=== PATIENT | female | born 1940 | race Caucasian/White ===

== ENCOUNTER 2018-12-19 14:47 | Inpatient (IN) | payer MEDICARE ==
[~2018-12-19] VITALS: Ht 152.4 cm; Wt 78.7 kg
--- NOTE | 2018-12-19 16:04 | Diagnostic Imaging Report ---
EXAMINATION: CHEST SINGLE (PORTABLE) INDICATION: Chest pain. COMPARISON: None FINDINGS: TUBES and LINES: None. LUNGS: Lungs are well inflated. Lungs are clear. There is no evidence of pneumonia or pulmonary edema. PLEURA: No pleural effusion or pneumothorax. HEART AND MEDIASTINUM: The cardiomediastinal silhouette is unremarkable. BONES AND SOFT TISSUES: No acute osseous abnormality. Old healed fracture deformity of the right clavicle. UPPER ABDOMEN: No free air under the diaphragm. IMPRESSION: No acute radiographic abnormality. Signed by: Dr. Luz Elena Lozada MD on 12/19/2018 4:00 PM
[2018-12-19 16:25] LABS: BILIRUBIN,URINE NEGATIVE (NEGATIVE); KETONES,URINE NEGATIVE (NEGATIVE); LEUKOCYTE ESTERASE ,URINE NEGATIVE (NEGATIVE); NITRITE,URINE NEGATIVE (NEGATIVE); PROTEIN,URINE DIPSTICK 2+ (NEGATIVE); URINE UROBILINOGEN 0.2 mg/dL (0.2 - 1)
[2018-12-19 16:33] LABS: AMORPHOUS SEDIMENT,URINE FEW (FEW); BACTERIA,URINE FEW /HPF; CLARITY,URINE CLEAR (CLEAR); COLOR,URINE YELLOW (YELLOW); EPITHELIAL CELLS,URINE FEW /LPF; MUCUS,URINE FEW (RARE); RBC,URINE 0-5 /HPF (0-5); WBC,URINE (MAN) 0-5 /HPF (0-5)
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
[2018-12-19 17:17] LABS: BASOPHILS # (AUTO) 0.1 (0.0-0.1); BASOPHILS % 0.7 % (0.0-1.0); EOSINOPHILS # (AUTO) 0.2 (0.0-0.4); EOSINOPHILS % 1.9 % (0.0-6.0); HEMATOCRIT 33.3 % (34.2-44.1); HEMOGLOBIN 10.1 g/dL (12.0-16.0); LYMPHOCYTES # (AUTO) 1.3 (1.0-3.2); LYMPHOCYTES % 14.9 % (18.0-39.1); MEAN CORPUSCULAR HEMOGLOBIN 24.4 pg (28-32); MEAN CORPUSCULAR HGB CONC 30.3 g/dL (31-35); MEAN CORPUSCULAR VOLUME 80.4 fL (81-99); MONOCYTES # (AUTO) 0.5 (0.2-0.8); MONOCYTES % 5.4 % (4.4-11.3); NEUTROPHILS # (AUTO) 6.6 (2.1-6.9); NEUTROPHILS % 76.9 % (38.7-80.0); PLATELET COUNT 305 x10e3/uL (140-360); RED BLOOD COUNT 4.14 x10e6/uL (3.6-5.1); RED CELL DISTRIBUTION WIDTH 15.7 % (11.7-14.4)
[2018-12-19 17:39] LABS: INR 0.89; PARTIAL THROMBOPLASTIN TIME 34.4 seconds (23.8-35.5); PROTHROMBIN TIME 12.9 seconds (11.9-14.5)
[2018-12-19 17:45] LABS: ALANINE AMINOTRANSFERASE 11 IU/L (0-55); ALBUMIN 3.4 g/dL (3.5-5.0); ALBUMIN/GLOBULIN RATIO 0.9 (0.8-2.0); ALKALINE PHOSPHATASE 63 IU/L (40-150); ANION GAP 17.1 mmol/L (8-16); BLOOD UREA NITROGEN 26 mg/dL (7-26); BUN/CREATININE RATIO 18 (6-25); CALCIUM 9.6 mg/dL (8.4-10.2); CARBON DIOXIDE 20 mmol/L (22-29); CHLORIDE 106 mmol/L (98-107); CREATINE KINASE 62 IU/L (29-168); CREATININE, SERUM 1.42 mg/dL (0.57-1.11); EST GLOMERULAR FILTRATION RATE 36 ML/MIN (60-); GLUCOSE 152 mg/dL (74-118); POTASSIUM 5.1 mmol/L (3.5-5.1); SODIUM 138 mmol/L (136-145)
[2018-12-19 17:57] LABS: MAGNESIUM 2.3 MG/DL (1.3-2.1)
[2018-12-19 18:24] LABS: THYROID STIMULATING HORMONE 0.707 uIU/mL (0.350-4.940)
[2018-12-19] MEDS ORDERED: CEFTRIAXONE SOD 1 GM/NS 50 ML 50 ML IV SCH (19:45)
[2018-12-19] MEDS ORDERED: ONDANSETRON HCL INJ 2MG/ML 2ML 2 MG/ML VIAL IV PRN (20:00)
[2018-12-19] MEDS ORDERED: SODIUM CHLORIDE 0.9% 1000ML 1,000 ML IV ONE (20:00)
[2018-12-19] MEDS ORDERED: METHYLPREDNISOLONE SOD SUCC 125 MG/2ML VIAL IV ONE (20:00)
--- OUTSIDE RECORDS SUMMARY | 2018-12-19 20:29 | XMS REPORT ---
Author Author [facility] Address Unknown Phone Unavailable Care Team Providers Care Manager Of Health Name Role Phone Navid KESSLER Unavailable Unavailable Problems This patient has no known problems. Allergies, Adverse Reactions, Alerts This patient has no known allergies or adverse reactions. Medications This patient has no known medications. Results Test Description Test Time Test Comments Text Results Atomic Results Result Comments CT BRAIN WO 2018-12-19 16:56:00 [place] [address] Patient Name: MONIK MTZ MR #: [id number] : 1940 Age/Sex: 78/F Req #: [id number] Adm Physician: Ordered by: CURTIS KESSLER MD Report #: [id number] Location: ER Room/Bed: Procedure: [id number] CT/CT BRAIN WO Exam Date: Exam Time: REPORT STATUS: Signed Examination: CT head without contrast Clinical Indication: Weakness. Techn ique: Transaxial noncontrast images from the skull base through the vertex were obtained. Sagittal and coronal reformatted images were done. Dose modulation, iterative reconstruction, and/or weight based adjustment of the mA/kV was utilized to reduce the radiation dose to as low as reasonably achievable. Comparison: None. Findings: Scalp: No abnormalities. Bones: Intact. There is a thinned defect of the right frontal calvarium from prior trauma. No fractures. No blastic or lytic lesions. Brain sulci: Appropriate for patient's age. Ventricles: Normal in size and configuration. No hydrocephalus. . Extra-axial space: No abnormalities. Parenchyma: There are areas of encephalomalacia involving the left internal watershed/ borderzone and cortical right posterior cerebral artery territory. Chronic lacunar infarct in the anterior limb of the left internal capsule. There are subtle patchy areas of low-attenuation within subcortical and perive ntricular white matter, nonspecific, but could represent microvascular ischemic disease. No masses, hemorrhage, or acute cortical based vascular insults. Suprasellar region: No abnormalities. Craniocervical junction: The foramen magnum is patent. No Chiari one malformation. Incidental findings: Partial opacification of the left sphenoid sinus. Impression: 1. No acute intracranial finding. 2. Mild chronic microvascular ischemic change. 3. Chronic infarcts, as above. Signed by: Dr. Myranda Bucio M.D. on 12/19/2018 5:02 PM Dictated By: MYRANDA GARCIA MD 01 Transcribed By: KARIN on 12/19/181701 COPY TO: CURTIS KESSLER MD CHEST SINGLE (PORTABLE) 2018-12-19 15:59:00 [place] [address] Patient Name: MONIK MTZ MR #: [id number] : 1940 Age/Sex: 78/F Req #: [id number] Adm Physician: Ordered by: CURTIS KESSLER MD Report #: [id number] Location: ER Room/Bed: Procedure: [id number] DX/CHEST SINGLE (PORTABLE) Exam Date: 12/19/18 Exam Time: 1550 REPORT STATUS: Signed EXAMINATION: CHEST SINGLE (PORTABLE) INDICAT ION: Chest pain. COMPARISON: None FINDINGS: TUBES and LINES: None. LUNGS: Lungs are well inflated. Lungs are clear. There is no evidence of pneumonia or pulmonary edema. PLEURA: No pleural effusion or pneumothorax. HEART AND MEDIASTINUM: The cardiomediastinal silhouette is unremarkable. BONES AND SOFT TISSUES: No acute osseous abnormality. Old healed fracture deformity of the right clavicle. UPPER ABDOMEN: No free air under the diaphragm. IMPRESSION: No acute radiographic abnormality. Signed by: Dr. Chi Vallejo MD on 12/19/2018 4:00 PM Dictated By: CHI VALLEJO MD 1600 Transcribed By: KARIN on 12/19/18 1600 COPY TO: CURTIS KESSLER MD
[2018-12-19] MEDS: AZITHROMYCIN 500MG/NS 250 ML 250 ML IV SCH ×2 (20:44→20:46)
[2018-12-19 21:00] VITALS: BP 150/64
[2018-12-19 21:30] VITALS: BP 150/64
[2018-12-19] MEDS ORDERED: COLACE100 MG PO (21:53)
[2018-12-19] MEDS ORDERED: LOSARTAN POTAS100 MG PO (21:53)
[2018-12-19] MEDS ORDERED: ZOLOFT50 MG PO (21:53)
[2018-12-19] MEDS ORDERED: ZETIA10 MG PO (21:53)
[2018-12-19] MEDS ORDERED: FLAX SEED OIL1000 MG PO (21:53)
[2018-12-19] MEDS ORDERED: NORVASC5 MG PO (21:53)
[2018-12-19] MEDS ORDERED: ALBUTEROL0.63 MG/3 INH (21:53)
[2018-12-19] MEDS ORDERED: MECLIZINE HCL12.5 MG PO (21:53)
[2018-12-19] MEDS ORDERED: PANTOPRAZOLE SO40 MG PO (21:53)
[2018-12-19] MEDS ORDERED: NITROGLYCERIN1 EAC1 TD (21:53)
[2018-12-19] MEDS ORDERED: LORAZEPAM0.5 MG PO (21:53)
[2018-12-19] MEDS ORDERED: BACLOFEN10 MG PO (21:53)
[2018-12-19] MEDS ORDERED: ASPIR 8181 MG PO (21:53)
[2018-12-19] MEDS ORDERED: GLIPIZIDE5 MG PO (21:53)
[2018-12-19] MEDS ORDERED: MIRALAX17 GM PO (21:53)
[2018-12-19] MEDS: LORAZEPAM 0.5 MG TAB PO SCH (22:25)
[2018-12-19] MEDS: ALBUTEROL SULF 0.083% NEB SOLN 3 ML NEB NEB SCH (22:40)
[2018-12-19] MEDS: IPRATROPIUM BROMIDE 0.02% 2.5 ML NEB NEB SCH (22:40)
[2018-12-20] VITALS (7 sets, daily range): BP systolic 132–170; BP diastolic 58–74
[2018-12-20 00:14] LABS: CREATINE KINASE 52 IU/L (29-168)
[2018-12-20] MEDS: ALBUTEROL SULF 0.083% NEB SOLN 3 ML NEB NEB SCH ×3 (02:08→15:05)
[2018-12-20] MEDS: IPRATROPIUM BROMIDE 0.02% 2.5 ML NEB NEB SCH ×3 (02:08→15:05)
[2018-12-20] MEDS ORDERED: EPINEPHRINE HCL 1:1000 1ML 1 MG/ML AMP ONE (05:58)
[2018-12-20] MEDS ORDERED: ALTEPLASE 50 MG/VIAL (29 MILLION IU) IV ONE (05:58)
[2018-12-20 06:38] LABS: BASOPHILS % 0.2 % (0.0-1.0); HEMOGLOBIN 9.2 g/dL (12.0-16.0); LYMPHOCYTES # (AUTO) 0.6 (1.0-3.2); MEAN CORPUSCULAR HEMOGLOBIN 24.7 pg (28-32); MEAN CORPUSCULAR HGB CONC 30.7 g/dL (31-35); MEAN CORPUSCULAR VOLUME 80.4 fL (81-99); MONOCYTES % 0.8 % (4.4-11.3); NEUTROPHILS # (AUTO) 4.2 (2.1-6.9); NEUTROPHILS % 86.4 % (38.7-80.0); PLATELET COUNT 249 x10e3/uL (140-360); RED BLOOD COUNT 3.73 x10e6/uL (3.6-5.1); RED CELL DISTRIBUTION WIDTH 15.3 % (11.7-14.4)
[2018-12-20 07:06] LABS: ALBUMIN 2.8 g/dL (3.5-5.0); ALBUMIN/GLOBULIN RATIO 0.9 (0.8-2.0); ANION GAP 12.3 mmol/L (8-16); CALCIUM 8.7 mg/dL (8.4-10.2); CREATININE, SERUM 1.19 mg/dL (0.57-1.11); POTASSIUM 4.3 mmol/L (3.5-5.1)
[2018-12-20 07:31] LABS: CREATINE KINASE MB 1.4 ng/mL (0-5.0)
[2018-12-20] MEDS ORDERED: METHYLPREDNISOLONE SOD SUCC 125 MG/2ML VIAL IV SCH ×3 (08:00→21:00)
[2018-12-20] MEDS ORDERED: ALBUTEROL/IPRATROPIUM 3 ML NEB NEB PRN (08:15)
[2018-12-20] MEDS ORDERED: DOCUSATE SODIUM 100 MG CAP PO PRN (08:15)
--- NOTE | 2018-12-20 08:58 | History and Physical ---
CHIEF COMPLAINT: Cough and congestion for the last few days and since yesterday. Could not get out of bed and walk. HISTORY OF PRESENT MEDICAL ILLNESS: A 78-year-old pleasant white female with a past medical history of multiple medical problems [facility] with the above complaints. As per patient, she has generalized weakness and trouble walking for the last few months and progressively getting worse. Since the last few days, she started having cough, congestion and trouble breathing on walking. Hence, the patient came to the ER last night. In the emergency room, the patient was seen by the emergency room doctor and admitted for further care and treatment. At present, the patient is lying comfortably in bed in no apparent distress. No chest pain. No shortness of breath. No nausea, vomiting or diarrhea. No abdominal pain or loss of consciousness. No palpitations. No headaches. No hematemesis. No melena. No hematuria or dysuria. No fever. No cough. No witnessed seizures. PAST MEDICAL HISTORY 1. Diabetes mellitus. 2. Hypertension. 3. COPD. 4. Hyperlipidemia. 5. CHF. 6. CVA with right hemiparesis. 7. DJD. MEDS: As listed in chart. ALLERGIES: NO KNOWN DRUG ALLERGIES. SURGICAL HISTORY: Ex-smoker. No alcohol. No illicit drug use. Lives alone at home. REVIEW OF SYSTEMS: As per HPI. FAMILY HISTORY: Noncontributory. PHYSICAL EXAMINATION GENERAL: Patient is alert, awake and oriented times 3. No apparent distress. Lying in bed. VITALS: Temperature is 97, pulse is 60 per minute, respiratory rate , blood pressure is 135/66, and saturation 96%. SKIN: No cyanosis. No icterus. No pallor. HEENT: Normocephalic and atraumatic. PERRLA. NECK: Soft and supple. No JVD. No carotid bruits. LUNGS: Air entry bilaterally equal. No rales or rhonchi. HEART: S1 and S2. No gallops or rub. ABDOMEN: Soft and nontender. Bowel sounds plus. TOLL GATE KEEPER: Alert, awake and times 3. Right hemiparesis plus. LABS: Sodium 135, potassium 4.8, chloride 108, bicarb 19, BUN 21, creatinine 1.19, and glucose 248. LFTs noted. Cardiac enzymes times 2 negative. BNP 13.5. White count 4.9, hemoglobin 9.2, hematocrit 39, and platelets 249,000. Rapid flu and rapid strep negative. CT of brain with no acute intracranial finding. Mild chronic microvascular ischemic changes, chronic infarcts. Chest x-ray with no acute changes. EKG shows sinus bradycardia. No acute ST-T changes. ASSESSMENT 1. Acute bronchitis with chronic obstructive pulmonary disease exacerbation. 2. Generalized weakness. 3. History of diabetes mellitus. 4. Chronic obstructive pulmonary disease. 5. Cerebrovascular accident. 6. Hypertension. 7. Congestive heart failure. PLAN: Admit the patient med/tele. Rocephin 1 g IVPB daily. Zithromax 500 mg IVPB daily. Solu-Medrol 40 mg IV q.12 h. Pulmonary consultation with Dr. Iyer. Neurology consultation with Dr. Ana Valencia. PT and OT eval and treat. Glucose Accu-Cheks q.a.c. and at night. Continue home medications. Further care and treatment of the patient while in the hospital. Discussed with the patient in detail. Job#: [id number] JESUS
[2018-12-20] MEDS: AMLODIPINE BESYLATE 5 MG TAB PO SCH (09:39)
[2018-12-20] MEDS: BACLOFEN 10 MG TAB PO SCH ×3 (09:39→21:55)
[2018-12-20] MEDS: LORAZEPAM 0.5 MG TAB PO SCH ×2 (09:39→21:55)
[2018-12-20] MEDS: ASPIRIN 81 MG CHEW TAB PO SCH (09:39)
[2018-12-20] MEDS: LOSARTAN POTASSIUM 100 MG TAB PO SCH (09:39)
[2018-12-20] MEDS: SERTRALINE HCL 50 MG TAB PO SCH (09:40)
[2018-12-20] MEDS: PANTOPRAZOLE SOD 40 MG TABEC PO SCH (09:40)
[2018-12-20] MEDS ORDERED: DEXTROSE 50% SYRINGE 50 ML IV PRN (10:30)
[2018-12-20] MEDS: INSULIN LISPRO 100 UNIT/1 ML 3ML VIAL SQ SCH ×2 (12:44→16:50)
[2018-12-20 14:23] LABS: CREATINE KINASE MB 2.5 ng/mL (0-5.0)
--- NOTE | 2018-12-20 16:22 | Consultation ---
DATE OF CONSULTATION: PULMONARY CONSULTATION REASON FOR CONSULTATION: Bronchitis and shortness of breath. HPI: Ms. Harvey is a 78-year-old female. She was recently admitted to [facility] and now here with the complaints of weakness. She recently finished rehab at [facility], and was at home, felt dizzy and generalized weakness. Was unable to walk. Also, had cough and upper respiratory tract infection. She is an ex-smoker. She quit smoking 15 years ago. Smoked for 40+ years. She denies any chest pain. Was feeling nauseous. In the emergency room, the patient's BUN was 21 and creatinine was 1.42, which has come down to 1.19 with IV hydration. She feels a little better, but still has some cough. She denies any complaints of cough. REVIEW OF SYSTEMS GENERAL: Denies any fever or chills. HEENT: Denies any head injury. Denies any earache. CV: Denies any chest pain. RESPIRATORY: Denies any shortness of breath. GI: Denies any nausea or vomiting. The rest of the review of systems are negative, except as in HPI. PAST MEDICAL HISTORY: Hypertension, diabetes, reported COPD. She was supposed to follow up with me 6 months ago. However, she was unable to. Degenerative joint disease. ALLERGIES: NO KNOWN DRUG ALLERGIES. 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 FAMILY AND SOCIAL HISTORY: Ex-smoker. Smoked for 40+ years. Quit 15 years ago. Used to smoke a pack a day. FAMILY HISTORY: Noncontributory. PHYSICAL EXAMINATION VITALS: Temperature 97.3, pulse of 63, blood pressure 149/66, respiratory rate 18, O2 sat 95% on room air. HEENT: Head atraumatic and normocephalic. NECK: Supple. CHEST: Clear to auscultation bilaterally. No wheezing. No crackles. HEART: S1 and S2 audible. ABDOMEN: Soft and nontender. EXTREMITIES: No clubbing, cyanosis or edema. NEUROLOGY: She is awake, alert and no focal neurological deficits. LABS: Sodium 135, potassium 4.3, chloride 108, bicarb 19, BUN 21, creatinine 1.19. When she came in, her bicarb was 20 and her creatinine was 1.42. Lactic acid was done, which was within normal limits. Chest x-ray, I have reviewed the images. It is not showing any evidence of any infiltrate. Brain CT was done, which is negative as well. Shows chronic infarcts and microvascular changes. Venous Doppler is pending. ASSESSMENT AND PLAN: Ms. Harvey is a 78-year-old female who came in with generalized weakness, unable to walk. Was found to be in acute kidney injury likely due to dehydration as she responded very well to fluid. History of chronic obstructive pulmonary disease, ex-smoker, occasional wheezing and bronchitis. CURRENT PROBLEMS 1. Acute bronchitis, possibly chronic obstructive pulmonary disease exacerbation. However, wheezing has resolved now. Probably was wheezing in the emergency room. I will reduce the dose of steroids. Continue the patient on nebulizer treatment. 2. Chest x-ray is not showing any evidence of pneumonia: Oxygen as needed to keep the O2 sat more than or equal to 92%. 3. Acute kidney injury, resolving with intravenous hydration. Thank you for this consult. Job#: [id number] JESUS
[2018-12-20] MEDS: ENOXAPARIN SOD INJ 40 MG/0.4 ML SYR SC SCH (16:50)
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
[2018-12-20] MEDS ORDERED: CEFTRIAXONE SOD 1 GM VIAL IV SCH (20:00)
[2018-12-20] MEDS: ALBUTEROL/IPRATROPIUM 3 ML NEB NEB SCH (20:18)
[2018-12-20] MEDS ORDERED: METHYLPREDNISOLONE SOD SUCC 40 MG/ML VIAL 1ML IV SCH (21:00)
[2018-12-20] MEDS: AZITHROMYCIN 500MG/NS 250 ML 250 ML IV SCH (21:55)
[2018-12-20] MEDS: CEFTRIAXONE SOD 1 GM/NS 50 ML 50 ML IV SCH (22:42)
[2018-12-21] VITALS (7 sets, daily range): BP systolic 123–149; BP diastolic 59–69
[2018-12-21] MEDS: INSULIN LISPRO 100 UNIT/1 ML 3ML VIAL SQ SCH ×5 (00:04→21:00)
[2018-12-21] MEDS: ALBUTEROL/IPRATROPIUM 3 ML NEB NEB SCH ×2 (07:00→21:00)
[2018-12-21] MEDS: LORAZEPAM 0.5 MG TAB PO SCH ×2 (08:22→21:21)
[2018-12-21] MEDS: BACLOFEN 10 MG TAB PO SCH ×3 (08:22→21:21)
[2018-12-21] MEDS: LOSARTAN POTASSIUM 100 MG TAB PO SCH (08:22)
[2018-12-21] MEDS: AMLODIPINE BESYLATE 5 MG TAB PO SCH (08:22)
[2018-12-21] MEDS: PANTOPRAZOLE SOD 40 MG TABEC PO SCH (08:22)
[2018-12-21] MEDS: ASPIRIN 81 MG CHEW TAB PO SCH (08:22)
[2018-12-21] MEDS: SERTRALINE HCL 50 MG TAB PO SCH (08:22)
[2018-12-21] MEDS: GLIPIZIDE 2.5 MG TABCR PO SCH ×2 (09:08→17:00)
[2018-12-21] MEDS: ENOXAPARIN SOD INJ 40 MG/0.4 ML SYR SC SCH (17:40)
[2018-12-21] MEDS: CEFTRIAXONE SOD 1 GM/NS 50 ML 50 ML IV SCH (21:21)
[2018-12-21] MEDS: AZITHROMYCIN 500MG/NS 250 ML 250 ML IV SCH (21:55)
[2018-12-22] VITALS (8 sets, daily range): BP systolic 142–197; BP diastolic 52–76
[2018-12-22 06:05] LABS: BASOPHILS # (AUTO) 0.1 (0.0-0.1); BASOPHILS % 0.9 % (0.0-1.0); EOSINOPHILS # (AUTO) 0.1 (0.0-0.4); EOSINOPHILS % 0.7 % (0.0-6.0); HEMATOCRIT 31.4 % (34.2-44.1); HEMOGLOBIN 9.4 g/dL (12.0-16.0); LYMPHOCYTES % 35.9 % (18.0-39.1); MEAN CORPUSCULAR HEMOGLOBIN 24.5 pg (28-32); MEAN CORPUSCULAR HGB CONC 29.9 g/dL (31-35); MEAN CORPUSCULAR VOLUME 81.8 fL (81-99); MONOCYTES # (AUTO) 0.5 (0.2-0.8); MONOCYTES % 6.3 % (4.4-11.3); NEUTROPHILS # (AUTO) 4.6 (2.1-6.9); NEUTROPHILS % 55.7 % (38.7-80.0); PLATELET COUNT 265 x10e3/uL (140-360); RED BLOOD COUNT 3.84 x10e6/uL (3.6-5.1); RED CELL DISTRIBUTION WIDTH 15.8 % (11.7-14.4)
[2018-12-22 06:40] LABS: ALBUMIN 2.9 g/dL (3.5-5.0); ALBUMIN/GLOBULIN RATIO 0.9 (0.8-2.0); ANION GAP 11.2 mmol/L (8-16); CALCIUM 8.9 mg/dL (8.4-10.2); CREATININE, SERUM 1.31 mg/dL (0.57-1.11); POTASSIUM 4.2 mmol/L (3.5-5.1)
[2018-12-22] MEDS: INSULIN LISPRO 100 UNIT/1 ML 3ML VIAL SQ SCH ×4 (07:30→21:27)
[2018-12-22] MEDS: ALBUTEROL/IPRATROPIUM 3 ML NEB NEB SCH ×2 (09:00→20:18)
[2018-12-22] MEDS: SERTRALINE HCL 50 MG TAB PO SCH (09:15)
[2018-12-22] MEDS: AMLODIPINE BESYLATE 5 MG TAB PO SCH ×2 (09:15→21:27)
[2018-12-22] MEDS: BACLOFEN 10 MG TAB PO SCH ×3 (09:15→21:27)
[2018-12-22] MEDS: LOSARTAN POTASSIUM 100 MG TAB PO SCH (09:15)
[2018-12-22] MEDS: LORAZEPAM 0.5 MG TAB PO SCH ×2 (09:15→21:27)
[2018-12-22] MEDS: GLIPIZIDE 2.5 MG TABCR PO SCH ×2 (09:15→17:54)
[2018-12-22] MEDS: PANTOPRAZOLE SOD 40 MG TABEC PO SCH (09:15)
[2018-12-22] MEDS: ASPIRIN 81 MG CHEW TAB PO SCH (09:15)
[2018-12-22] MEDS ORDERED: AMLODIPINE BESYLATE 5 MG TAB PO SCH (17:00)
[2018-12-22] MEDS: ENOXAPARIN SOD INJ 40 MG/0.4 ML SYR SC SCH (17:55)
[2018-12-22] MEDS: HYDRALAZINE HCL 25 MG TAB PO SCH (17:57)
[2018-12-22] MEDS: AZITHROMYCIN 500MG/NS 250 ML 250 ML IV SCH (21:27)
[2018-12-22] MEDS: CEFTRIAXONE SOD 1 GM/NS 50 ML 50 ML IV SCH (22:32)
[2018-12-23] VITALS (7 sets, daily range): BP systolic 129–147; BP diastolic 53–83
--- NOTE | 2018-12-23 01:52 | Consultation ---
DATE OF CONSULTATION: 12/22/2018 Cardiology consultation. Thank you so much for asking us to see this nice lady again in consultation. Ms. Harvey is a very complex and elderly 78-year-old woman known to us for many years, who was admitted on the with the complaints of cough and shortness of breath. HISTORY OF PRESENT ILLNESS: The patient is a very detailed and elaborate historian, who tells me that she was admitted to the hospital in April of last year for some problems with weakness and labile blood pressure. She reports that her blood pressure would drop and her heart would race when she attempted to exert herself. PAST MEDICAL HISTORY: Significant for previous diagnosis of cardiomyopathy without any demonstration of coronary artery disease, her ejection fraction was actually 20% to 30% in 2015, but by July 2017, it had returned to normal. She has had previous cardiac catheterization not demonstrating any coronary artery disease. She reports that she had a stroke many years ago and has used a leg brace to walk, however, she continues to live at home by herself since she was discharged from [facility] in July of 2018. CURRENT MEDICATIONS: Include azithromycin, ceftriaxone, albuterol, amlodipine 5 mg b.i.d., aspirin 81 mg daily, baclofen 10 mg t.i.d., Colace, Lovenox, glipizide 2.5 mg b.i.d., Humalog sliding scale, ativan, losartan 100 mg each morning, sertraline, Zoloft 50 mg daily. FAMILY HISTORY: Father at 72 of [place]. Mother at 75 with colon cancer. PHYSICAL EXAMINATION: GENERAL: At this time shows a pleasant elderly woman, who is alert, responsive, and conversant. VITAL SIGNS: Last blood pressure about 190/90. HEAD, EYES, EARS, NOSE, AND THROAT: Otherwise unremarkable. NECK: No jugular venous distention. No bruits. THORAX: heart sounds S1 and S2 are equal. No murmurs. LUNGS: Clear. ABDOMEN: Protuberant. EXTREMITIES: No cyanosis, clubbing, or edema. There is a leg brace on the bedside table. RADIOGRAPHS: EKG shows sinus bradycardia, rate of 51. Otherwise unremarkable. LABORATORY DATA: Recent laboratory studies show BUN 34, creatinine 1.3. Hemoglobin 9.4, white count 8.2. ASSESSMENT: 1. Hypertension, labile. 2. Palpitations. 3. History of cardiomyopathy, previously resolved. 4. Type 2 adult onset diabetes. 5. Anxiety disorder. PLAN: We will add 25 mg hydralazine b.i.d. and review echocardiogram. Further management will be based on clinical course. Thank you for asking us to see her in consultation. MD PILAR Evans/MODL /[id number] cc: MD Ana Tobar MD
[2018-12-23] MEDS: ALBUTEROL/IPRATROPIUM 3 ML NEB NEB SCH ×2 (07:00→20:00)
[2018-12-23] MEDS: INSULIN LISPRO 100 UNIT/1 ML 3ML VIAL SQ SCH ×4 (07:30→21:45)
[2018-12-23] MEDS: PANTOPRAZOLE SOD 40 MG TABEC PO SCH (08:12)
[2018-12-23] MEDS: SERTRALINE HCL 50 MG TAB PO SCH (09:35)
[2018-12-23] MEDS: ASPIRIN 81 MG CHEW TAB PO SCH (09:35)
[2018-12-23] MEDS: LOSARTAN POTASSIUM 100 MG TAB PO SCH (09:35)
[2018-12-23] MEDS: LORAZEPAM 0.5 MG TAB PO SCH ×2 (09:35→21:45)
[2018-12-23] MEDS: GLIPIZIDE 2.5 MG TABCR PO SCH ×2 (09:35→16:40)
[2018-12-23] MEDS: AMLODIPINE BESYLATE 5 MG TAB PO SCH ×2 (09:35→21:45)
[2018-12-23] MEDS: BACLOFEN 10 MG TAB PO SCH ×3 (09:35→21:45)
[2018-12-23] MEDS: HYDRALAZINE HCL 25 MG TAB PO SCH ×2 (09:35→16:40)
[2018-12-23] MEDS: ENOXAPARIN SOD INJ 40 MG/0.4 ML SYR SC SCH (16:40)
[2018-12-23] MEDS: AZITHROMYCIN 500MG/NS 250 ML 250 ML IV SCH (21:45)
[2018-12-23] MEDS: CEFTRIAXONE SOD 1 GM/NS 50 ML 50 ML IV SCH (22:49)
[2018-12-24] VITALS: BP 179/77
[2018-12-24 04:00] VITALS: BP 147/68
[2018-12-24 05:44] LABS: BASOPHILS # (AUTO) 0.1 (0.0-0.1); BASOPHILS % 0.8 % (0.0-1.0); EOSINOPHILS # (AUTO) 0.3 (0.0-0.4); HEMATOCRIT 33.3 % (34.2-44.1); HEMOGLOBIN 10.1 g/dL (12.0-16.0); LYMPHOCYTES # (AUTO) 2.4 (1.0-3.2); MEAN CORPUSCULAR HEMOGLOBIN 24.4 pg (28-32); MEAN CORPUSCULAR HGB CONC 30.3 g/dL (31-35); MEAN CORPUSCULAR VOLUME 80.4 fL (81-99); MONOCYTES # (AUTO) 0.6 (0.2-0.8); MONOCYTES % 8.2 % (4.4-11.3); NEUTROPHILS # (AUTO) 3.7 (2.1-6.9); NEUTROPHILS % 52.6 % (38.7-80.0); PLATELET COUNT 264 x10e3/uL (140-360); RED BLOOD COUNT 4.14 x10e6/uL (3.6-5.1)
[2018-12-24 06:09] LABS: ANION GAP 12.1 mmol/L (8-16); CALCIUM 9.1 mg/dL (8.4-10.2); CREATININE, SERUM 1.14 mg/dL (0.57-1.11); POTASSIUM 4.1 mmol/L (3.5-5.1)
[2018-12-24] MEDS: INSULIN LISPRO 100 UNIT/1 ML 3ML VIAL SQ SCH ×3 (07:30→16:11)
[2018-12-24 07:55] VITALS: BP 197/69
[2018-12-24] MEDS: ALBUTEROL/IPRATROPIUM 3 ML NEB NEB SCH (08:00)
[2018-12-24] MEDS: HYDRALAZINE HCL 25 MG TAB PO SCH ×2 (08:19→16:38)
[2018-12-24] MEDS: LORAZEPAM 0.5 MG TAB PO SCH (08:19)
[2018-12-24] MEDS: PANTOPRAZOLE SOD 40 MG TABEC PO SCH (08:19)
[2018-12-24] MEDS: ASPIRIN 81 MG CHEW TAB PO SCH (08:19)
[2018-12-24] MEDS: GLIPIZIDE 2.5 MG TABCR PO SCH ×2 (08:19→16:38)
[2018-12-24] MEDS: LOSARTAN POTASSIUM 100 MG TAB PO SCH (08:20)
[2018-12-24] MEDS: AMLODIPINE BESYLATE 5 MG TAB PO SCH (08:20)
[2018-12-24] MEDS: BACLOFEN 10 MG TAB PO SCH ×2 (08:20→14:41)
[2018-12-24 09:09] VITALS: BP 197/69
[2018-12-24 13:15] VITALS: BP 122/55
[2018-12-24] MEDS: ENOXAPARIN SOD INJ 40 MG/0.4 ML SYR SC SCH (16:38)
[2018-12-24 16:50] VITALS: BP 142/62
[2018-12-24] MEDS ORDERED: CEFUROXIME AXETIL 250 MG TAB PO SCH (17:00)
[2018-12-24] MEDS ORDERED: SERTRALINE HCL 50 MG TAB PO SCH (21:00)
--- NOTE | 2018-12-25 08:01 | Consultation ---
DATE OF CONSULTATION: 12/24/2018 Consultation CHIEF COMPLAINT: Dizziness. HISTORY OF PRESENT ILLNESS: The patient is a 78-year-old elderly white female, who was admitted to [facility] on 12/19/2018, with generalized weakness and trouble walking, which has been getting progressively worse. She has also had recent onset development of upper respiratory tract symptoms. I have been asked to evaluate for her dizziness. The patient states that she had dizziness for the past 6 months. She characterizes the dizziness as lightheadedness and imbalance, which occurs after sitting up from a lying position or standing up from a sitting position. She denies any spinning sensation. She denies any otalgia, otorrhea, or any hearing changes during this time. She denies any previous ear surgery. PAST MEDICAL HISTORY: Hypertension, diabetes mellitus, COPD, hyperlipidemia, congestive heart failure, history of CVA, and degenerative joint disease. ALLERGIES: SHE HAS NO KNOWN DRUG ALLERGIES. 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 SOCIAL HISTORY: She is an ex-smoker. PHYSICAL EXAMINATION: GENERAL: The patient is an elderly white female appearing her stated age, appearing in no distress. HEENT: Ear exam reveals normal ears. Nasal exam is clear. Oral cavity, oropharynx is normal. Face is symmetric. NECK: Supple with no palpable lymphadenopathy. NEUROLOGY: The patient has no spinning sensation or nystagmus after arising from a lying to sitting position, though she did experience mild lightheadedness without nystagmus, recreating her dizziness complaints. ASSESSMENT: Ms. Harvey has dizziness of uncertain etiology. Inner ear vertiginous etiology is unlikely. Consider other non-inner ear related etiologies including, but not limited to cardiovascular etiology, metabolic etiology for which I recommend further evaluation. MD Sukh CalvertKY/JONATHAN /[id number] MTDD
== END 2018-12-24 17:52 | DRG 202 ==
LOC: ER 14:47 → ERHOLD 20:27 → MED/SURG 20:52 → OBSVTOIN 12-21 16:55
PROVIDERS: ADMIT Internal Medicine; ATTEND Internal Medicine
DX: J20.9 Acute bronchitis, unspecified (principal); J44.0 Chronic obstructive pulmonary disease with (acute) lower respiratory infection; I69.351 Hemiplegia and hemiparesis following cerebral infarction affecting right dominant side; N17.9 Acute kidney failure, unspecified; M35.3 Polymyalgia rheumatica; E11.9 Type 2 diabetes mellitus without complications; I11.0 Hypertensive heart disease with heart failure; I50.9 Heart failure, unspecified; Z87.891 Personal history of nicotine dependence; E86.0 Dehydration; I16.0 Hypertensive urgency; M19.90 Unspecified osteoarthritis, unspecified site; F41.9 Anxiety disorder, unspecified; R42 Dizziness and giddiness; R53.81 Other malaise; R53.1 Weakness; K21.0 Gastro-esophageal reflux disease with esophagitis; Z79.84 Long term (current) use of oral hypoglycemic drugs; Z79.82 Long term (current) use of aspirin
CPT/HCPCS: 36415; 70450; 71045; 80053; 81001; 82550; 82553; 82948; 83518; 83605; 83735; 83880; 84443; 84484; 85025; 85610; 85651; 85730; 87040; 87070; 87086; 87400; 93005; 93306; 93970; 94640; 97139; 99284; G0378; J0171; J0456; J0696; J1650; J2920; J2930; J7030

== ENCOUNTER 2021-01-15 01:17 | Inpatient (IN) | payer MEDICARE, OTHER ==
[2021-01-15] VITALS (7 sets, daily range): BP systolic 134–185; BP diastolic 47–60
[~2021-01-15] VITALS: Ht 152.4 cm; Wt 78.5 kg
[~2021-01-15 01:17] MED LIST: ALBUTEROL0.63 MG/3 INH; ASPIR 8181 MG PO; BACLOFEN10 MG PO; COLACE100 MG PO; FLAX SEED OIL1000 MG PO; GLIPIZIDE5 MG PO; LORAZEPAM0.5 MG PO; LOSARTAN POTAS100 MG PO; MECLIZINE HCL12.5 MG PO; MIRALAX17 GM PO; NITROGLYCERIN1 EAC1 TD; NORVASC5 MG PO; PANTOPRAZOLE SO40 MG PO; ZETIA10 MG PO; ZOLOFT50 MG PO
[2021-01-15] MEDS ORDERED: CEFTRIAXONE SOD 1 GM VIAL ONE (03:16)
[2021-01-15] MEDS ORDERED: AZITHROMYCIN 500MG/NS 250 ML 250 ML ONE (03:16)
[2021-01-15] MEDS ORDERED: ASPIRIN 325 MG TAB ONE (03:16)
[2021-01-15] MEDS ORDERED: ASPIRIN 325 MG TAB PO ONE (06:15)
[2021-01-15] MEDS ORDERED: AZITHROMYCIN 500MG/NS 250 ML 250 ML IV ONE (06:15)
[2021-01-15] MEDS ORDERED: CEFTRIAXONE SOD 1 GM/50 ML BAG IV ONE (06:15)
[2021-01-15] MEDS ORDERED: CEFTRIAXONE SOD 1 GM in SODIUM CHLORIDE 0.9% 50ML 50 ML IV ONE (06:35)
[2021-01-15 06:47] LABS: BASOPHILS # (AUTO) 0.1 (0.0-0.1); BASOPHILS % 1.1 % (0.0-1.0); EOSINOPHILS # (AUTO) 2.3 (0.0-0.4); EOSINOPHILS % 21.8 % (0.0-6.0); HEMATOCRIT 31.7 % (34.2-44.1); HEMOGLOBIN 9.6 g/dL (12.0-16.0); LYMPHOCYTES # (AUTO) 1.1 (1.0-3.2); LYMPHOCYTES % 10.7 % (18.0-39.1); MEAN CORPUSCULAR HEMOGLOBIN 23.9 pg (28-32); MEAN CORPUSCULAR HGB CONC 30.3 g/dL (31-35); MEAN CORPUSCULAR VOLUME 79.1 fL (81-99); MONOCYTES # (AUTO) 0.8 (0.2-0.8); MONOCYTES % 7.7 % (4.4-11.3); NEUTROPHILS # (AUTO) 6.2 (2.1-6.9); NEUTROPHILS % 58.2 % (38.7-80.0); PLATELET COUNT 298 x10e3/uL (140-360); RED BLOOD COUNT 4.01 x10e6/uL (3.6-5.1); RED CELL DISTRIBUTION WIDTH 14.4 % (11.7-14.4)
[2021-01-15 07:35] LABS: ANION GAP 16.7 mmol/L (8-16); CALCIUM 9.1 mg/dL (8.4-10.2); CREATININE, SERUM 1.38 mg/dL (0.57-1.11); POTASSIUM 4.7 mmol/L (3.5-5.1)
[2021-01-15 07:36] LABS: ALBUMIN 3.5 g/dL (3.5-5.0); ALBUMIN/GLOBULIN RATIO 0.8 (0.8-2.0)
[2021-01-15] MEDS: ALBUTEROL/IPRATROPIUM 3 ML NEB NEB PRN ×4 (07:40→20:20)
[2021-01-15 07:51] LABS: BACTERIA,URINE FEW /HPF; CLARITY,URINE CLEAR (CLEAR); COLOR,URINE YELLOW (YELLOW); EPITHELIAL CELLS,URINE FEW /LPF; KETONES,URINE NEGATIVE (NEGATIVE); LEUKOCYTE ESTERASE ,URINE NEGATIVE (NEGATIVE); NITRITE,URINE NEGATIVE (NEGATIVE); PROTEIN,URINE DIPSTICK 1+ (NEGATIVE); RBC,URINE 0-5 /HPF (0-5); URINE UROBILINOGEN 0.2 mg/dL (0.2 - 1); WBC,URINE (MAN) 0-5 /HPF (0-5)
[2021-01-15] MEDS: PREDNISONE 20 MG TAB PO SCH (10:00)
[2021-01-15] MEDS ORDERED: ROSUVASTATIN CAL5 MG PO (10:42)
[2021-01-15] MEDS ORDERED: ULTRAM 50MG50 MG PO (10:42)
[2021-01-15] MEDS ORDERED: HYDRALAZINE HCL50 MG PO (10:42)
[2021-01-15 10:58] LABS: EOSINOPHILS % (MANUAL) 28 % (0-7); LYMPHOCYTES % (MANUAL) 20 % (19-48); MONOCYTES % (MANUAL) 4 % (3.4-9.0); NEUTROPHILS % (MANUAL) 46 % (40-74)
[2021-01-15 11:00] LABS: BURR CELLS SLIGHT; ELLIPTOCYTE, RBC SLIGHT; OVALOCYTES FEW; PLATELET ESTIMATE ADEQUATE; PLATELET MORPHOLOGY COMMENT NORMAL
[2021-01-15 11:02] LABS: RBC MORPHOLOGY COMMENT ABNORMAL
[2021-01-15] MEDS ORDERED: POLYETHYLENE GLYCOL 3350 17 GM PACK PO PRN (11:15)
[2021-01-15] MEDS ORDERED: DOCUSATE SODIUM 100 MG CAP PO PRN (11:15)
[2021-01-15] MEDS ORDERED: LOSARTAN POTASSIUM 100 MG TAB PO SCH (11:15)
[2021-01-15] MEDS: HYDRALAZINE HCL 25 MG TAB PO SCH ×2 (11:22→17:19)
[2021-01-15] MEDS ORDERED: ENOXAPARIN INJ 80 MG/0.8 ML SYR SC ONE (12:15)
[2021-01-15 15:20] LABS: INR 0.91; PROTHROMBIN TIME 12.8 seconds (11.9-14.5)
[2021-01-15] MEDS: ONDANSETRON HCL INJ 2MG/ML 2ML 2 MG/ML VIAL IV PRN ×2 (17:19→22:00)
[2021-01-15] MEDS: CRESTOR 10MG PO SCH (21:43)
[2021-01-16] VITALS (8 sets, daily range): BP systolic 128–178; BP diastolic 39–63
[2021-01-16] MEDS ORDERED: SODIUM CHLORIDE 0.9% 50ML 50 ML ONE (00:16)
[2021-01-16] MEDS ORDERED: CEFTRIAXONE SOD 1 GM VIAL ONE (00:16)
[2021-01-16] MEDS: ALBUTEROL/IPRATROPIUM 3 ML NEB NEB PRN ×3 (02:05→15:32)
[2021-01-16] MEDS: CEFTRIAXONE SOD 1 GM in SODIUM CHLORIDE 0.9% 50ML 50 ML IV SCH (02:27)
[2021-01-16 05:10] LABS: BASOPHILS # (AUTO) 0.1 (0.0-0.1); EOSINOPHILS # (AUTO) 0.5 (0.0-0.4); EOSINOPHILS % 4.6 % (0.0-6.0); HEMATOCRIT 28.4 % (34.2-44.1); HEMOGLOBIN 8.6 g/dL (12.0-16.0); LYMPHOCYTES # (AUTO) 1.6 (1.0-3.2); LYMPHOCYTES % 13.9 % (18.0-39.1); MEAN CORPUSCULAR HEMOGLOBIN 23.9 pg (28-32); MEAN CORPUSCULAR HGB CONC 30.3 g/dL (31-35); MEAN CORPUSCULAR VOLUME 78.9 fL (81-99); MONOCYTES # (AUTO) 1.1 (0.2-0.8); MONOCYTES % 9.4 % (4.4-11.3); NEUTROPHILS # (AUTO) 8.2 (2.1-6.9); NEUTROPHILS % 70.5 % (38.7-80.0); PLATELET COUNT 318 x10e3/uL (140-360); RED CELL DISTRIBUTION WIDTH 14.6 % (11.7-14.4)
[2021-01-16 05:31] LABS: ALBUMIN 2.9 g/dL (3.5-5.0); ALBUMIN/GLOBULIN RATIO 0.9 (0.8-2.0); ANION GAP 13.1 mmol/L (8-16); CALCIUM 8.2 mg/dL (8.4-10.2); CHOL/HDL RATIO 2.7 (3.0-3.6); CREATININE, SERUM 1.23 mg/dL (0.57-1.11); POTASSIUM 5.1 mmol/L (3.5-5.1)
[2021-01-16 05:54] LABS: THYROID STIMULATING HORMONE 0.332 uIU/mL (0.350-4.940)
[2021-01-16] MEDS: HYDRALAZINE HCL 25 MG TAB PO SCH ×2 (08:20→16:57)
[2021-01-16] MEDS: AZITHROMYCIN 250 MG TAB PO SCH (08:21)
[2021-01-16] MEDS: PANTOPRAZOLE SOD 40 MG TABEC PO SCH (08:21)
[2021-01-16] MEDS: PREDNISONE 20 MG TAB PO SCH (08:21)
[2021-01-16] MEDS: ASPIRIN 81 MG CHEW TAB PO SCH (08:21)
[2021-01-16] MEDS ORDERED: SERTRALINE HCL 50 MG TAB PO SCH (09:00)
[2021-01-16] MEDS ORDERED: CEFTRIAXONE SOD 1 GM/50 ML BAG IV SCH (09:00)
[2021-01-16] MEDS: ONDANSETRON HCL INJ 2MG/ML 2ML 2 MG/ML VIAL IV PRN (09:14)
[2021-01-16] MEDS: ENOXAPARIN SOD INJ 40 MG/0.4 ML SYR SC SCH (16:57)
[2021-01-16] MEDS ORDERED: GUAIFENESIN/DEXTROMETHORPHAN LIQD 5 ML UDC PO PRN (17:45)
[2021-01-16 19:09] LABS: OSMOLALITY,SERUM OSMOMETER 273 mOsmol/kg (280-301)
[2021-01-16] MEDS: ALBUTEROL/IPRATROPIUM 3 ML NEB NEB SCH (19:58)
[2021-01-16] MEDS: CRESTOR 10MG PO SCH (22:22)
[2021-01-17 00:42] VITALS: BP 147/46
[2021-01-17] MEDS: ALBUTEROL/IPRATROPIUM 3 ML NEB NEB SCH ×3 (02:54→14:00)
[2021-01-17] MEDS: CEFTRIAXONE SOD 1 GM in SODIUM CHLORIDE 0.9% 50ML 50 ML IV SCH (04:00)
[2021-01-17] MEDS ORDERED: CEFTRIAXONE SOD 1 GM VIAL ONE (04:06)
[2021-01-17] MEDS ORDERED: SODIUM CHLORIDE 0.9% 50ML 50 ML ONE (04:06)
[2021-01-17 05:09] LABS: BASOPHILS # (AUTO) 0.1 (0.0-0.1); BASOPHILS % 0.8 % (0.0-1.0); EOSINOPHILS # (AUTO) 0.2 (0.0-0.4); EOSINOPHILS % 1.4 % (0.0-6.0); HEMOGLOBIN 8.8 g/dL (12.0-16.0); LYMPHOCYTES # (AUTO) 2.1 (1.0-3.2); LYMPHOCYTES % 18.9 % (18.0-39.1); MEAN CORPUSCULAR HEMOGLOBIN 23.9 pg (28-32); MEAN CORPUSCULAR HGB CONC 30.3 g/dL (31-35); MEAN CORPUSCULAR VOLUME 78.8 fL (81-99); MONOCYTES # (AUTO) 1.2 (0.2-0.8); MONOCYTES % 10.7 % (4.4-11.3); NEUTROPHILS # (AUTO) 7.5 (2.1-6.9); NEUTROPHILS % 67.4 % (38.7-80.0); PLATELET COUNT 347 x10e3/uL (140-360); RED BLOOD COUNT 3.68 x10e6/uL (3.6-5.1); RED CELL DISTRIBUTION WIDTH 14.6 % (11.7-14.4)
[2021-01-17 05:21] VITALS: BP 147/52
[2021-01-17 05:34] LABS: ALBUMIN/GLOBULIN RATIO 0.9 (0.8-2.0); CALCIUM 8.4 mg/dL (8.4-10.2); CREATININE, SERUM 1.23 mg/dL (0.57-1.11)
[2021-01-17 08:32] VITALS: BP 161/43
[2021-01-17 08:49] VITALS: BP 161/43
[2021-01-17] MEDS: PREDNISONE 20 MG TAB PO SCH (09:05)
[2021-01-17] MEDS: PANTOPRAZOLE SOD 40 MG TABEC PO SCH (09:05)
[2021-01-17] MEDS: AZITHROMYCIN 250 MG TAB PO SCH (09:05)
[2021-01-17] MEDS: HYDRALAZINE HCL 25 MG TAB PO SCH ×2 (09:05→16:06)
[2021-01-17] MEDS: ASPIRIN 81 MG CHEW TAB PO SCH (09:05)
[2021-01-17 12:54] VITALS: BP 137/63
[2021-01-17] MEDS ORDERED: AMLODIPINE BESYLATE 5 MG TAB PO SCH (16:00)
[2021-01-17] MEDS: ENOXAPARIN SOD INJ 40 MG/0.4 ML SYR SC SCH (16:06)
[2021-01-17 16:50] VITALS: BP 184/59
[2021-01-17] MEDS ORDERED: SERTRALINE HCL 50 MG TAB PO SCH (21:00)
== END 2021-01-17 19:39 | DRG 191 ==
LOC: ER 01:42 → ERHOLD 06:59 → MED/SURG2 10:00
PROVIDERS: ADMIT Internal Medicine; ATTEND Internal Medicine
DX: J44.1 Chronic obstructive pulmonary disease with (acute) exacerbation (principal); I13.0 Hypertensive heart and chronic kidney disease with heart failure and stage 1 through stage 4 chronic kidney disease, or unspecified chronic kidney disease; I69.351 Hemiplegia and hemiparesis following cerebral infarction affecting right dominant side; I50.32 Chronic diastolic (congestive) heart failure; E11.22 Type 2 diabetes mellitus with diabetic chronic kidney disease; N18.9 Chronic kidney disease, unspecified; D64.9 Anemia, unspecified; I25.10 Atherosclerotic heart disease of native coronary artery without angina pectoris; Z87.891 Personal history of nicotine dependence; Z20.822 Contact with and (suspected) exposure to COVID-19; Z82.49 Family history of ischemic heart disease and other diseases of the circulatory system; Z80.0 Family history of malignant neoplasm of digestive organs; D63.8 Anemia in other chronic diseases classified elsewhere; Z79.82 Long term (current) use of aspirin; Z79.84 Long term (current) use of oral hypoglycemic drugs
CPT/HCPCS: 36415; 71046; 78580; 80053; 80061; 81001; 82550; 82553; 82948; 83880; 83930; 83935; 84443; 84484; 85025; 85379; 85610; 85730; 87040; 93005; 93306; 93970; 94640; 99251; 99285; A9540; J0456; J0696; J1650; J2405; J7512; U0002

== ENCOUNTER 2021-01-25 17:03 | Inpatient (IN) | payer MEDICARE, OTHER ==
[~2021-01-25] VITALS: Ht 152.4 cm; Wt 83.9 kg
[~2021-01-25 17:03] MED LIST changes: +HYDRALAZINE HCL50 MG PO; +ROSUVASTATIN CAL5 MG PO; +ULTRAM 50MG50 MG PO
[2021-01-25 17:41] LABS: BASOPHILS % 0.1 % (0.0-1.0); HEMATOCRIT 29.9 % (34.2-44.1); HEMOGLOBIN 9.4 g/dL (12.0-16.0); LYMPHOCYTES # (AUTO) 0.4 (1.0-3.2); LYMPHOCYTES % 5.1 % (18.0-39.1); MEAN CORPUSCULAR HGB CONC 31.4 g/dL (31-35); MEAN CORPUSCULAR VOLUME 76.3 fL (81-99); MONOCYTES # (AUTO) 0.2 (0.2-0.8); NEUTROPHILS # (AUTO) 6.9 (2.1-6.9); NEUTROPHILS % 92.4 % (38.7-80.0); PLATELET COUNT 377 x10e3/uL (140-360); RED BLOOD COUNT 3.92 x10e6/uL (3.6-5.1); RED CELL DISTRIBUTION WIDTH 14.3 % (11.7-14.4)
[2021-01-25 17:59] LABS: ALBUMIN 3.4 g/dL (3.5-5.0); ALBUMIN/GLOBULIN RATIO 1.1 (0.8-2.0); ANION GAP 12.8 mmol/L (8-16); CALCIUM 8.6 mg/dL (8.4-10.2); CREATININE, SERUM 0.98 mg/dL (0.57-1.11); POTASSIUM 4.8 mmol/L (3.5-5.1)
[2021-01-25 18:06] LABS: CREATINE KINASE MB 3.3 ng/mL (0-5.0)
[2021-01-25] MEDS ORDERED: ASPIRIN 81 MG CHEW TAB PO ONE (18:15)
[2021-01-25] MEDS: SODIUM CHLORIDE 0.9% 1000ML 1,000 ML IV SCH (19:52)
[2021-01-25 20:57] VITALS: BP 149/56
[2021-01-25 21:00] VITALS: BP 149/56
[2021-01-25 21:16] VITALS: BP 149/56
[2021-01-25 22:00] VITALS: BP 139/63
[2021-01-25 22:30] LABS: ANION GAP 12.6 mmol/L (8-16); BLOOD UREA NITROGEN 15 mg/dL (7-26); BUN/CREATININE RATIO 19 (6-25); CALCIUM 8.3 mg/dL (8.4-10.2); CARBON DIOXIDE 23 mmol/L (22-29); CHLORIDE 88 mmol/L (98-107); CREATININE, SERUM 0.81 mg/dL (0.57-1.11); EST GLOMERULAR FILTRATION RATE > 60 ML/MIN (60-); GLUCOSE 218 mg/dL (74-118); POTASSIUM 4.6 mmol/L (3.5-5.1)
[2021-01-25 22:32] LABS: SODIUM 119 mmol/L (136-145)
[2021-01-25] MEDS: ALBUTEROL SULF 0.083% NEB SOLN 3 ML NEB NEB PRN (22:45)
[2021-01-25 23:00] VITALS: BP 126/89
[2021-01-25] MEDS: TRAMADOL HCL 50 MG TAB PO PRN (23:48)
[2021-01-26] VITALS (13 sets, daily range): BP systolic 108–157; BP diastolic 35–89
[2021-01-26] MEDS: SODIUM CHLORIDE 0.9% 1000ML 1,000 ML IV SCH ×2 (02:39→12:04)
[2021-01-26 06:37] LABS: BASOPHILS % 0.1 % (0.0-1.0); EOSINOPHILS % 0.3 % (0.0-6.0); HEMATOCRIT 27.3 % (34.2-44.1); HEMOGLOBIN 8.5 g/dL (12.0-16.0); LYMPHOCYTES # (AUTO) 1.7 (1.0-3.2); LYMPHOCYTES % 23.4 % (18.0-39.1); MEAN CORPUSCULAR HEMOGLOBIN 24.1 pg (28-32); MEAN CORPUSCULAR HGB CONC 31.1 g/dL (31-35); MEAN CORPUSCULAR VOLUME 77.3 fL (81-99); MONOCYTES # (AUTO) 0.7 (0.2-0.8); MONOCYTES % 9.3 % (4.4-11.3); NEUTROPHILS # (AUTO) 4.9 (2.1-6.9); NEUTROPHILS % 66.5 % (38.7-80.0); PLATELET COUNT 295 x10e3/uL (140-360); RED BLOOD COUNT 3.53 x10e6/uL (3.6-5.1); RED CELL DISTRIBUTION WIDTH 14.5 % (11.7-14.4)
[2021-01-26 07:00] LABS: CREATINE KINASE MB 1.9 ng/mL (0-5.0)
[2021-01-26 07:15] LABS: BLOOD UREA NITROGEN 13 mg/dL (7-26); BUN/CREATININE RATIO 18 (6-25); CALCIUM 7.8 mg/dL (8.4-10.2); CARBON DIOXIDE 21 mmol/L (22-29); CHLORIDE 96 mmol/L (98-107); CREATININE, SERUM 0.74 mg/dL (0.57-1.11); EST GLOMERULAR FILTRATION RATE > 60 ML/MIN (60-); GLUCOSE 136 mg/dL (74-118); MAGNESIUM 1.8 MG/DL (1.3-2.1); PHOSPHORUS 2.7 MG/DL (2.3-4.7); SODIUM 126 mmol/L (136-145)
[2021-01-26] MEDS: ALBUTEROL SULF 0.083% NEB SOLN 3 ML NEB NEB PRN ×3 (07:15→20:40)
[2021-01-26] MEDS: SODIUM CHLORIDE 1 GM TAB PO SCH ×3 (09:28→21:51)
[2021-01-26] MEDS ORDERED: LOVENOX40 MG/0.4 SC (10:52)
[2021-01-26] MEDS ORDERED: AMLODIPINE BESYL5 MG PO (10:52)
[2021-01-26] MEDS ORDERED: ALBUTEROL SULF 0.083% NEB SOLN 3 ML NEB INH PRN (15:00)
[2021-01-26] MEDS ORDERED: POLYETHYLENE GLYCOL 3350 17 GM PACK PO PRN (15:00)
[2021-01-26] MEDS ORDERED: TRAMADOL HCL 50 MG TAB PO PRN (15:00)
[2021-01-26] MEDS ORDERED: DOCUSATE SODIUM 100 MG CAP PO PRN (15:00)
[2021-01-26] MEDS ORDERED: LACTULOSE SYRUP 20 GM/30 ML UDC PO PRN (15:00)
[2021-01-26] MEDS: BACLOFEN 10 MG TAB PO SCH ×2 (15:18→21:51)
[2021-01-26 15:25] LABS: ANION GAP 12.2 mmol/L (8-16); BLOOD UREA NITROGEN 13 mg/dL (7-26); BUN/CREATININE RATIO 16 (6-25); CALCIUM 7.9 mg/dL (8.4-10.2); CARBON DIOXIDE 21 mmol/L (22-29); CHLORIDE 98 mmol/L (98-107); CREATININE, SERUM 0.81 mg/dL (0.57-1.11); EST GLOMERULAR FILTRATION RATE > 60 ML/MIN (60-); GLUCOSE 198 mg/dL (74-118); POTASSIUM 4.2 mmol/L (3.5-5.1); SODIUM 127 mmol/L (136-145)
[2021-01-26 15:46] LABS: CLARITY,URINE HAZY (CLEAR); COLOR,URINE YELLOW (YELLOW); KETONES,URINE NEGATIVE (NEGATIVE); LEUKOCYTE ESTERASE ,URINE NEGATIVE (NEGATIVE); NITRITE,URINE NEGATIVE (NEGATIVE); PROTEIN,URINE DIPSTICK NEGATIVE (NEGATIVE); URINE UROBILINOGEN 0.2 mg/dL (0.2 - 1)
[2021-01-26 15:47] LABS: BACTERIA,URINE FEW /HPF; EPITHELIAL CELLS,URINE FEW /LPF; RBC,URINE 0-5 /HPF (0-5); WBC,URINE (MAN) 0-5 /HPF (0-5)
[2021-01-26 15:54] LABS: CREATININE,URINE RANDOM 14.12 mg/dL (47-110); SODIUM,URINE 55 mmol/L; TOTAL PROTEIN, URINE 15.2 mg/dL (1-14)
[2021-01-26] MEDS ORDERED: LORAZEPAM 0.5 MG TAB PO SCH (17:00)
[2021-01-26] MEDS: GLIPIZIDE 5 MG TAB PO SCH (17:27)
[2021-01-26] MEDS: ENOXAPARIN SOD INJ 40 MG/0.4 ML SYR SC SCH (17:27)
[2021-01-26] MEDS: ONDANSETRON HCL 4 MG ORAL DISINTEGRATING TAB PO PRN ×2 (17:44→22:12)
[2021-01-26] MEDS: MECLIZINE HCL 12.5 MG TAB PO SCH (21:51)
[2021-01-26] MEDS: SERTRALINE HCL 50 MG TAB PO SCH (21:51)
[2021-01-26] MEDS: LORAZEPAM 0.5 MG TAB PO SCH (21:51)
[2021-01-27] VITALS (7 sets, daily range): BP systolic 135–168; BP diastolic 35–58
[2021-01-27] MEDS: MECLIZINE HCL 12.5 MG TAB PO SCH ×3 (05:11→21:32)
[2021-01-27 06:20] LABS: BASOPHILS % 0.3 % (0.0-1.0); EOSINOPHILS # (AUTO) 0.1 (0.0-0.4); HEMATOCRIT 27.9 % (34.2-44.1); HEMOGLOBIN 8.5 g/dL (12.0-16.0); LYMPHOCYTES # (AUTO) 1.5 (1.0-3.2); LYMPHOCYTES % 24.6 % (18.0-39.1); MEAN CORPUSCULAR HEMOGLOBIN 24.4 pg (28-32); MEAN CORPUSCULAR HGB CONC 30.5 g/dL (31-35); MEAN CORPUSCULAR VOLUME 80.2 fL (81-99); MONOCYTES # (AUTO) 0.7 (0.2-0.8); MONOCYTES % 11.2 % (4.4-11.3); NEUTROPHILS # (AUTO) 3.9 (2.1-6.9); NEUTROPHILS % 62.6 % (38.7-80.0); PLATELET COUNT 300 x10e3/uL (140-360); RED BLOOD COUNT 3.48 x10e6/uL (3.6-5.1)
[2021-01-27 06:51] LABS: ANION GAP 12.2 mmol/L (8-16); BLOOD UREA NITROGEN 12 mg/dL (7-26); BUN/CREATININE RATIO 15 (6-25); CALCIUM 7.9 mg/dL (8.4-10.2); CARBON DIOXIDE 21 mmol/L (22-29); CHLORIDE 102 mmol/L (98-107); EST GLOMERULAR FILTRATION RATE > 60 ML/MIN (60-); GLUCOSE 117 mg/dL (74-118); POTASSIUM 4.2 mmol/L (3.5-5.1); SODIUM 131 mmol/L (136-145)
[2021-01-27] MEDS: ALBUTEROL SULF 0.083% NEB SOLN 3 ML NEB NEB PRN (07:00)
[2021-01-27] MEDS: GLIPIZIDE 5 MG TAB PO SCH (08:10)
[2021-01-27] MEDS: ASPIRIN 81 MG CHEW TAB PO SCH (08:10)
[2021-01-27] MEDS: LORAZEPAM 0.5 MG TAB PO SCH ×2 (08:10→21:31)
[2021-01-27] MEDS: BACLOFEN 10 MG TAB PO SCH ×3 (08:10→21:31)
[2021-01-27] MEDS: PANTOPRAZOLE SOD 40 MG TABEC PO SCH (08:11)
[2021-01-27] MEDS: AMLODIPINE BESYLATE 5 MG TAB PO SCH (08:11)
[2021-01-27] MEDS: SODIUM CHLORIDE 1 GM TAB PO SCH (08:13)
[2021-01-27] MEDS ORDERED: DEXTROSE 50% SYRINGE 50 ML IV ONE (15:38)
[2021-01-27] MEDS ORDERED: GLUCAGON FOR INJ 1 MG VIAL SC PRN (15:45)
[2021-01-27] MEDS: ENOXAPARIN SOD INJ 40 MG/0.4 ML SYR SC SCH (16:25)
[2021-01-27] MEDS ORDERED: DEXTROSE 50% SYRINGE 50 ML IV PRN (19:30)
[2021-01-27] MEDS: INSULIN LISPRO 100 UNIT/1 ML 3ML VIAL SQ SCH (21:00)
[2021-01-27] MEDS: SERTRALINE HCL 50 MG TAB PO SCH (21:31)
[2021-01-28] VITALS (7 sets, daily range): BP systolic 127–157; BP diastolic 35–55
[2021-01-28] MEDS: TRAMADOL HCL 50 MG TAB PO PRN (03:42)
[2021-01-28] MEDS: MECLIZINE HCL 12.5 MG TAB PO SCH ×3 (05:34→20:53)
[2021-01-28 06:08] LABS: ANION GAP 9.5 mmol/L (8-16); BLOOD UREA NITROGEN 11 mg/dL (7-26); BUN/CREATININE RATIO 13 (6-25); CALCIUM 7.9 mg/dL (8.4-10.2); CARBON DIOXIDE 24 mmol/L (22-29); CHLORIDE 97 mmol/L (98-107); CREATININE, SERUM 0.82 mg/dL (0.57-1.11); EST GLOMERULAR FILTRATION RATE > 60 ML/MIN (60-); GLUCOSE 106 mg/dL (74-118); POTASSIUM 4.5 mmol/L (3.5-5.1); SODIUM 126 mmol/L (136-145)
[2021-01-28] MEDS: INSULIN LISPRO 100 UNIT/1 ML 3ML VIAL SQ SCH ×4 (07:30→21:00)
[2021-01-28] MEDS: BACLOFEN 10 MG TAB PO SCH ×3 (08:49→20:53)
[2021-01-28] MEDS: PANTOPRAZOLE SOD 40 MG TABEC PO SCH (08:49)
[2021-01-28] MEDS: AMLODIPINE BESYLATE 5 MG TAB PO SCH (08:49)
[2021-01-28] MEDS: LORAZEPAM 0.5 MG TAB PO SCH ×2 (08:49→20:53)
[2021-01-28] MEDS: ASPIRIN 81 MG CHEW TAB PO SCH (08:49)
[2021-01-28] MEDS: POLYETHYLENE GLYCOL 3350 17 GM PACK PO SCH (11:45)
[2021-01-28] MEDS ORDERED: SODIUM CHLORIDE 0.9% 1000ML 1,000 ML IV ONE (15:15)
[2021-01-28] MEDS: ENOXAPARIN SOD INJ 40 MG/0.4 ML SYR SC SCH (16:03)
[2021-01-28 18:08] LABS: BLOOD UREA NITROGEN 11 mg/dL (7-26); BUN/CREATININE RATIO 13 (6-25); CALCIUM 8.5 mg/dL (8.4-10.2); CARBON DIOXIDE 23 mmol/L (22-29); CHLORIDE 93 mmol/L (98-107); CREATININE, SERUM 0.82 mg/dL (0.57-1.11); EST GLOMERULAR FILTRATION RATE > 60 ML/MIN (60-); GLUCOSE 133 mg/dL (74-118); SODIUM 125 mmol/L (136-145)
[2021-01-28] MEDS ORDERED: FUROSEMIDE INJ 10 MG/ML 2 ML VIAL IV ONE (18:30)
[2021-01-28] MEDS: SERTRALINE HCL 50 MG TAB PO SCH (20:53)
[2021-01-28] MEDS ORDERED: MECLIZINE HCL 12.5 MG TAB PO SCH (22:00)
[2021-01-29] VITALS (8 sets, daily range): BP systolic 107–150; BP diastolic 39–50
[2021-01-29] MEDS: TRAMADOL HCL 50 MG TAB PO PRN ×2 (02:12→16:23)
[2021-01-29 05:07] LABS: CALCIUM IONIZED 1.2 mmol/L (1.09-1.30)
[2021-01-29 05:11] LABS: BASOPHILS % 0.6 % (0.0-1.0); EOSINOPHILS # (AUTO) 0.2 (0.0-0.4); EOSINOPHILS % 5.1 % (0.0-6.0); HEMATOCRIT 28.3 % (34.2-44.1); HEMOGLOBIN 8.6 g/dL (12.0-16.0); LYMPHOCYTES # (AUTO) 1.4 (1.0-3.2); LYMPHOCYTES % 28.8 % (18.0-39.1); MEAN CORPUSCULAR HEMOGLOBIN 24.3 pg (28-32); MEAN CORPUSCULAR HGB CONC 30.4 g/dL (31-35); MEAN CORPUSCULAR VOLUME 79.9 fL (81-99); MONOCYTES # (AUTO) 0.7 (0.2-0.8); NEUTROPHILS # (AUTO) 2.4 (2.1-6.9); NEUTROPHILS % 51.3 % (38.7-80.0); PLATELET COUNT 240 x10e3/uL (140-360); RED BLOOD COUNT 3.54 x10e6/uL (3.6-5.1); RED CELL DISTRIBUTION WIDTH 14.5 % (11.7-14.4)
[2021-01-29 05:25] LABS: ANION GAP 12.4 mmol/L (8-16); BLOOD UREA NITROGEN 10 mg/dL (7-26); BUN/CREATININE RATIO 13 (6-25); CALCIUM 8.1 mg/dL (8.4-10.2); CARBON DIOXIDE 25 mmol/L (22-29); CHLORIDE 92 mmol/L (98-107); EST GLOMERULAR FILTRATION RATE > 60 ML/MIN (60-); GLUCOSE 106 mg/dL (74-118); POTASSIUM 4.4 mmol/L (3.5-5.1); SODIUM 125 mmol/L (136-145)
[2021-01-29 05:45] LABS: MAGNESIUM 1.6 MG/DL (1.3-2.1)
[2021-01-29] MEDS: MECLIZINE HCL 12.5 MG TAB PO SCH ×3 (05:53→22:03)
[2021-01-29] MEDS ORDERED: GUAIFENESIN 600 MG TAB PO PRN (06:30)
[2021-01-29] MEDS ORDERED: BENZONATATE 100 MG CAP PO PRN (06:30)
[2021-01-29] MEDS: INSULIN LISPRO 100 UNIT/1 ML 3ML VIAL SQ SCH ×4 (07:30→21:00)
[2021-01-29] MEDS: ALBUTEROL SULF 0.083% NEB SOLN 3 ML NEB NEB PRN (08:04)
[2021-01-29] MEDS: ASPIRIN 81 MG CHEW TAB PO SCH (08:06)
[2021-01-29] MEDS: LORAZEPAM 0.5 MG TAB PO SCH ×2 (08:06→20:50)
[2021-01-29] MEDS: BACLOFEN 10 MG TAB PO SCH ×3 (08:06→20:50)
[2021-01-29] MEDS: AMLODIPINE BESYLATE 5 MG TAB PO SCH (08:07)
[2021-01-29] MEDS: PANTOPRAZOLE SOD 40 MG TABEC PO SCH (08:07)
[2021-01-29] MEDS: POLYETHYLENE GLYCOL 3350 17 GM PACK PO SCH (08:08)
[2021-01-29] MEDS ORDERED: MAGNESIUM OXIDE 400 MG TAB PO NR (10:15)
[2021-01-29] MEDS ORDERED: BISACODYL 10 MG SUPP PR ONE (11:15)
[2021-01-29] MEDS ORDERED: MAGNESIUM SULFATE 2GM/50ML 50 ML IV ONE (14:00)
[2021-01-29] MEDS: ENOXAPARIN SOD INJ 40 MG/0.4 ML SYR SC SCH (16:18)
[2021-01-29 17:52] LABS: ANION GAP 10.4 mmol/L (8-16); BLOOD UREA NITROGEN 11 mg/dL (7-26); BUN/CREATININE RATIO 13 (6-25); CALCIUM 8.4 mg/dL (8.4-10.2); CARBON DIOXIDE 22 mmol/L (22-29); CHLORIDE 94 mmol/L (98-107); CREATININE, SERUM 0.84 mg/dL (0.57-1.11); EST GLOMERULAR FILTRATION RATE > 60 ML/MIN (60-); GLUCOSE 146 mg/dL (74-118); POTASSIUM 4.4 mmol/L (3.5-5.1); SODIUM 122 mmol/L (136-145)
[2021-01-29] MEDS ORDERED: TOLVAPTAN 15 MG TAB PO ONE (19:00)
[2021-01-29] MEDS: SERTRALINE HCL 50 MG TAB PO SCH (20:50)
[2021-01-30] VITALS (9 sets, daily range): BP systolic 132–167; BP diastolic 32–51
[2021-01-30 01:43] LABS: ANION GAP 11.5 mmol/L (8-16); BLOOD UREA NITROGEN 9 mg/dL (7-26); BUN/CREATININE RATIO 11 (6-25); CALCIUM 8.2 mg/dL (8.4-10.2); CARBON DIOXIDE 25 mmol/L (22-29); CHLORIDE 96 mmol/L (98-107); EST GLOMERULAR FILTRATION RATE > 60 ML/MIN (60-); GLUCOSE 94 mg/dL (74-118); POTASSIUM 4.5 mmol/L (3.5-5.1); SODIUM 128 mmol/L (136-145)
[2021-01-30] MEDS: MECLIZINE HCL 12.5 MG TAB PO SCH ×3 (05:54→22:02)
[2021-01-30 07:12] LABS: BASOPHILS % 0.9 % (0.0-1.0); EOSINOPHILS # (AUTO) 0.2 (0.0-0.4); HEMATOCRIT 27.9 % (34.2-44.1); HEMOGLOBIN 8.7 g/dL (12.0-16.0); LYMPHOCYTES # (AUTO) 1.3 (1.0-3.2); LYMPHOCYTES % 29.5 % (18.0-39.1); MEAN CORPUSCULAR HEMOGLOBIN 24.5 pg (28-32); MEAN CORPUSCULAR HGB CONC 31.2 g/dL (31-35); MEAN CORPUSCULAR VOLUME 78.6 fL (81-99); MONOCYTES # (AUTO) 0.6 (0.2-0.8); MONOCYTES % 14.7 % (4.4-11.3); NEUTROPHILS # (AUTO) 2.2 (2.1-6.9); NEUTROPHILS % 50.7 % (38.7-80.0); PLATELET COUNT 231 x10e3/uL (140-360); RED BLOOD COUNT 3.55 x10e6/uL (3.6-5.1); RED CELL DISTRIBUTION WIDTH 14.6 % (11.7-14.4)
[2021-01-30] MEDS: INSULIN LISPRO 100 UNIT/1 ML 3ML VIAL SQ SCH ×4 (07:20→21:00)
[2021-01-30 07:30] LABS: ANION GAP 10.5 mmol/L (8-16); BLOOD UREA NITROGEN 7 mg/dL (7-26); BUN/CREATININE RATIO 9 (6-25); CALCIUM 8.2 mg/dL (8.4-10.2); CARBON DIOXIDE 27 mmol/L (22-29); CHLORIDE 97 mmol/L (98-107); EST GLOMERULAR FILTRATION RATE > 60 ML/MIN (60-); GLUCOSE 108 mg/dL (74-118); POTASSIUM 4.5 mmol/L (3.5-5.1); SODIUM 130 mmol/L (136-145)
[2021-01-30] MEDS: LORAZEPAM 0.5 MG TAB PO SCH ×2 (08:35→21:39)
[2021-01-30] MEDS: ASPIRIN 81 MG CHEW TAB PO SCH (08:35)
[2021-01-30] MEDS: BACLOFEN 10 MG TAB PO SCH ×3 (08:36→21:39)
[2021-01-30] MEDS: AMLODIPINE BESYLATE 5 MG TAB PO SCH (08:36)
[2021-01-30] MEDS: PANTOPRAZOLE SOD 40 MG TABEC PO SCH (08:36)
[2021-01-30] MEDS: POLYETHYLENE GLYCOL 3350 17 GM PACK PO SCH (08:39)
[2021-01-30] MEDS ORDERED: DEXTROSE 5% 1,000 ML IV ONE (09:00)
[2021-01-30] MEDS: ENOXAPARIN SOD INJ 40 MG/0.4 ML SYR SC SCH (17:02)
[2021-01-30] MEDS: SERTRALINE HCL 50 MG TAB PO SCH (21:39)
[2021-01-31] MEDS: MECLIZINE HCL 12.5 MG TAB PO SCH (05:13)
[2021-01-31 05:14] VITALS: BP 131/30
[2021-01-31 05:52] LABS: BASOPHILS % 0.7 % (0.0-1.0); EOSINOPHILS # (AUTO) 0.2 (0.0-0.4); EOSINOPHILS % 5.2 % (0.0-6.0); HEMATOCRIT 27.8 % (34.2-44.1); HEMOGLOBIN 8.5 g/dL (12.0-16.0); LYMPHOCYTES # (AUTO) 1.4 (1.0-3.2); LYMPHOCYTES % 30.8 % (18.0-39.1); MEAN CORPUSCULAR HEMOGLOBIN 24.2 pg (28-32); MEAN CORPUSCULAR HGB CONC 30.6 g/dL (31-35); MEAN CORPUSCULAR VOLUME 79.2 fL (81-99); MONOCYTES # (AUTO) 0.6 (0.2-0.8); MONOCYTES % 12.6 % (4.4-11.3); NEUTROPHILS # (AUTO) 2.3 (2.1-6.9); NEUTROPHILS % 50.7 % (38.7-80.0); PLATELET COUNT 223 x10e3/uL (140-360); RED BLOOD COUNT 3.51 x10e6/uL (3.6-5.1)
[2021-01-31 06:16] LABS: ANION GAP 10.1 mmol/L (8-16); BLOOD UREA NITROGEN 9 mg/dL (7-26); BUN/CREATININE RATIO 12 (6-25); CALCIUM 8.3 mg/dL (8.4-10.2); CARBON DIOXIDE 27 mmol/L (22-29); CHLORIDE 99 mmol/L (98-107); CREATININE, SERUM 0.77 mg/dL (0.57-1.11); EST GLOMERULAR FILTRATION RATE > 60 ML/MIN (60-); GLUCOSE 110 mg/dL (74-118); POTASSIUM 4.1 mmol/L (3.5-5.1); SODIUM 132 mmol/L (136-145)
[2021-01-31] MEDS: INSULIN LISPRO 100 UNIT/1 ML 3ML VIAL SQ SCH ×2 (07:30→11:30)
[2021-01-31 08:44] VITALS: BP_SYST 143; BP_SYST 160; BP_DIAS 41; BP_DIAS 76
[2021-01-31 08:56] VITALS: BP 160/41
[2021-01-31] MEDS: LORAZEPAM 0.5 MG TAB PO SCH (09:21)
[2021-01-31] MEDS: ASPIRIN 81 MG CHEW TAB PO SCH (09:21)
[2021-01-31] MEDS: PANTOPRAZOLE SOD 40 MG TABEC PO SCH (09:22)
[2021-01-31] MEDS: AMLODIPINE BESYLATE 5 MG TAB PO SCH (09:22)
[2021-01-31] MEDS: BACLOFEN 10 MG TAB PO SCH ×2 (09:22→13:08)
[2021-01-31] MEDS: POLYETHYLENE GLYCOL 3350 17 GM PACK PO SCH (09:24)
[2021-01-31] MEDS ORDERED: MECLIZINE HCL 12.5 MG TAB PO PRN (09:45)
[2021-01-31 12:01] VITALS: BP 146/32
[2021-01-31] MEDS ORDERED: SERTRALINE HCL 50 MG TAB PO SCH (21:00)
== END 2021-01-31 13:52 | DRG 191 ==
LOC: ER 17:06 → ERHOLD 18:14 → ICU 20:46 → MED/SURG3 01-26 09:20 → OBSVTOIN 01-26 14:34
PROVIDERS: ADMIT Internal Medicine; ATTEND Internal Medicine
DX: J44.1 Chronic obstructive pulmonary disease with (acute) exacerbation (principal); E87.1 Hypo-osmolality and hyponatremia; I85.00 Esophageal varices without bleeding; I13.0 Hypertensive heart and chronic kidney disease with heart failure and stage 1 through stage 4 chronic kidney disease, or unspecified chronic kidney disease; I50.22 Chronic systolic (congestive) heart failure; I25.10 Atherosclerotic heart disease of native coronary artery without angina pectoris; E78.5 Hyperlipidemia, unspecified; K59.00 Constipation, unspecified; F41.9 Anxiety disorder, unspecified; F32.9 Major depressive disorder, single episode, unspecified; Z20.822 Contact with and (suspected) exposure to COVID-19; E83.42 Hypomagnesemia; D63.8 Anemia in other chronic diseases classified elsewhere; R00.1 Bradycardia, unspecified; B34.9 Viral infection, unspecified; E11.22 Type 2 diabetes mellitus with diabetic chronic kidney disease; E11.65 Type 2 diabetes mellitus with hyperglycemia; N18.9 Chronic kidney disease, unspecified
CPT/HCPCS: 36415; 71045; 80048; 80053; 81001; 82550; 82553; 82570; 82948; 83735; 83880; 83930; 83935; 84100; 84156; 84295; 84300; 84484; 85025; 93005; 94640; 97139; 99251; 99284; G0378; J1610; J1650; J1940; J3475; J7030; J7070; J7799; Q0162; U0002

== ENCOUNTER 2023-11-19 11:25 | Inpatient (IN) | payer MEDICARE, OTHER ==
[~2023-11-19] VITALS: Ht 152.4 cm; Wt 83.9 kg
[~2023-11-19 11:25] MED LIST changes: +AMLODIPINE BESYL5 MG PO; +LOVENOX40 MG/0.4 SC
[2023-11-19] MEDS ORDERED: SODIUM CHLORIDE 0.9% 1000ML 1,000 ML IV SCH (12:15)
[2023-11-19] MEDS ORDERED: ALBUTEROL/IPRATROPIUM 3 ML NEB ONE (12:20)
[2023-11-19 12:32] LABS: BASOPHILS # (AUTO) 0.1 (0.0-0.1); BASOPHILS % 0.3 % (0.0-1.0); EOSINOPHILS # (AUTO) 0.1 (0.0-0.4); EOSINOPHILS % 0.2 % (0.0-6.0); HEMATOCRIT 23.9 % (34.2-44.1); HEMOGLOBIN 7.3 g/dL (12.0-16.0); LYMPHOCYTES # (AUTO) 1.8 (1.0-3.2); LYMPHOCYTES % 3.4 % (18.0-39.1); MEAN CORPUSCULAR HEMOGLOBIN 26.8 pg (28-32); MEAN CORPUSCULAR HGB CONC 30.5 g/dL (31-35); MEAN CORPUSCULAR VOLUME 87.9 fL (81-99); MONOCYTES # (AUTO) 3.7 (0.2-0.8); NEUTROPHILS # (AUTO) 42.7 (2.1-6.9); NEUTROPHILS % 81.2 % (38.7-80.0); PLATELET COUNT 202 x10e3/uL (140-360); RED BLOOD COUNT 2.72 x10e6/uL (3.6-5.1); RED CELL DISTRIBUTION WIDTH 14.3 % (11.7-14.4)
[2023-11-19 12:33] VITALS: PULSE 88; RESP 18; O2SAT 93
[2023-11-19 12:41] LABS: WHITE BLOOD COUNT 52.65 x10e3/uL (4.8-10.8)
[2023-11-19 12:50] LABS: ALBUMIN 2.4 g/dL (3.5-5.0); ALBUMIN/GLOBULIN RATIO 0.6 (0.8-2.0); ANION GAP 22.6 mmol/L (8-16); BILIRUBIN,TOTAL 0.4 mg/dL (0.2-1.2); CALCIUM 8.1 mg/dL (8.4-10.2); CREATININE, SERUM 3.59 mg/dL (0.57-1.11); TOTAL PROTEIN 6.6 g/dL (6.5-8.1)
[2023-11-19 12:52] LABS: POTASSIUM 5.6 mmol/L (3.5-5.1)
[2023-11-19] MEDS ORDERED: SODIUM BICARBONATE 8.4% INJ 50 ML SYR IV STA (13:00)
[2023-11-19] MEDS ORDERED: PIPERACILLIN/TAZOBACTAM 4.5 GM in SODIUM CHLORIDE 0.9% 100 ML IV ONE (13:00)
[2023-11-19] MEDS ORDERED: ASPIRIN 300 MG SUPP PR STA (13:04)
[2023-11-19] MEDS: CALCIUM GLUC 1 G/50 ML NACL 50 ML IV SCH ×3 (13:15→15:15)
[2023-11-19 13:22] LABS: PHOSPHORUS 2.3 MG/DL (2.3-4.7); URIC ACID 8.4 mg/dL (2.6-8.0)
[2023-11-19] MEDS ORDERED: Vancomycin IV 1 GM in SODIUM CHLORIDE 0.9% 250ML 250 ML IV ONE (13:30)
[2023-11-19 13:33] VITALS: O2SAT 0
[2023-11-19 13:51] LABS: BAND NEUTROPHILS % (MANUAL) 1 %; LYMPHOCYTES % (MANUAL) 8 % (19-48); MONOCYTES % (MANUAL) 9 % (3.4-9.0); MYELOCYTES % (MANUAL) 3 % (0-0); NEUTROPHILS % (MANUAL) 78 % (40-74); PLATELET ESTIMATE ADEQUATE; REACTIVE LYMPHOCYTES 1
[2023-11-19 13:52] LABS: PLATELET MORPHOLOGY COMMENT NORMAL
== END 2023-11-19 19:15 | disposition expired | DRG 871 ==
LOC: ER 11:39 → ERHOLD 13:08
PROVIDERS: ADMIT Internal Medicine; ATTEND Internal Medicine
DX: A41.9 Sepsis, unspecified organism (principal); I21.4 Non-ST elevation (NSTEMI) myocardial infarction; R65.21 Severe sepsis with septic shock; J15.9 Unspecified bacterial pneumonia; I50.43 Acute on chronic combined systolic (congestive) and diastolic (congestive) heart failure; E87.20 Acidosis, unspecified; E87.1 Hypo-osmolality and hyponatremia; J81.1 Chronic pulmonary edema; J44.0 Chronic obstructive pulmonary disease with (acute) lower respiratory infection; I13.0 Hypertensive heart and chronic kidney disease with heart failure and stage 1 through stage 4 chronic kidney disease, or unspecified chronic kidney disease; I69.351 Hemiplegia and hemiparesis following cerebral infarction affecting right dominant side; F33.9 Major depressive disorder, recurrent, unspecified; I46.8 Cardiac arrest due to other underlying condition; Z66 Do not resuscitate; E87.5 Hyperkalemia; D64.9 Anemia, unspecified; N18.9 Chronic kidney disease, unspecified; E11.22 Type 2 diabetes mellitus with diabetic chronic kidney disease; I25.10 Atherosclerotic heart disease of native coronary artery without angina pectoris; F41.9 Anxiety disorder, unspecified; K21.9 Gastro-esophageal reflux disease without esophagitis; E78.5 Hyperlipidemia, unspecified; G47.00 Insomnia, unspecified; M62.81 Muscle weakness (generalized); Z87.891 Personal history of nicotine dependence; Z79.899 Other long term (current) drug therapy; Z79.82 Long term (current) use of aspirin; Z87.820 Personal history of traumatic brain injury; I69.311 Memory deficit following cerebral infarction; Z20.822 Contact with and (suspected) exposure to COVID-19
CPT/HCPCS: 36415; 71045; 80053; 83605; 83615; 83880; 84100; 84484; 84550; 85025; 87040; 87071; 87205; 93005; 94799; 99285; J2543; J7030; J7050; U0002